=== PATIENT | male | born 1985 | race African-American/Black ===

== ENCOUNTER 2017-02-11 22:06 | Emergency (ER) | payer MEDICAID ==
[2017-02-11] MEDS ORDERED: NO HOME MEDICATION XX (22:31)
[2017-02-11 22:58] LABS: URINE BILIRUBIN NEGATIVE (NEG); URINE BLOOD NEGATIVE (NEG); URINE GLUCOSE (UA) NEGATIVE (NEG); URINE KETONE NEGATIVE (NEG); URINE LEUKOCYTE ESTERASE POSITIVE (NEG); URINE NITRITE NEGATIVE (NEG); URINE PROTEIN NEGATIVE (NEG)
[2017-02-11 22:59] LABS: URINE APPEARANCE HAZY; URINE COLOR YELLOW
[2017-02-11 23:03] LABS: URINE BACTERIA 2+; URINE EPITHELIAL CELLS RARE /[HPF] (0-10); URINE RBC 0 /[HPF] (0-5)
[2017-02-11] MEDS ORDERED: CIPRO500 M2 PO (23:13)
== END 2017-02-11 23:58 ==
LOC: EDMED 22:06
PROVIDERS: Emergency Medicine
DX: N39.0 Urinary tract infection, site not specified (principal); F17.200 Nicotine dependence, unspecified, uncomplicated
CPT/HCPCS: J0696

== ENCOUNTER 2017-03-08 18:31 | Emergency (ER) | payer MEDICAID ==
[~2017-03-08 18:31] MED LIST: CIPRO500 M2 PO; NO HOME MEDICATION XX
[2017-03-08] MEDS ORDERED: VIBRAMYCIN100 M1 PO (19:32)
[2017-03-08 20:00] LABS: URINE BILIRUBIN NEGATIVE (NEG); URINE BLOOD NEGATIVE (NEG); URINE GLUCOSE (UA) NEGATIVE (NEG); URINE KETONE NEGATIVE (NEG); URINE LEUKOCYTE ESTERASE NEGATIVE (NEG); URINE NITRITE NEGATIVE (NEG); URINE PROTEIN NEGATIVE (NEG); URINE SPECIFIC GRAVITY 1.005 (1.003-1.030)
[2017-03-08 20:02] LABS: URINE APPEARANCE CLEAR; URINE COLOR YELLOW
== END 2017-03-08 20:35 ==
LOC: EDMED 18:31
PROVIDERS: Emergency Medicine
DX: R35.0 Frequency of micturition (principal); Z20.2 Contact with and (suspected) exposure to infections with a predominantly sexual mode of transmission; F17.200 Nicotine dependence, unspecified, uncomplicated
CPT/HCPCS: J0696